=== PATIENT | male | born 1955 | race African-American/Black ===

== ENCOUNTER 2016-09-30 12:38 | Emergency (ER) | payer OTHER ==
[2016-09-30 13:58] LABS: BASOPHIL % 0.9 % (0-2); PLATELET COUNT 265 x10^3mcL (130-400); RED CELL DISTRIBUTION WIDTH 12.6 % (11.5-14.5)
[2016-09-30 14:03] LABS: UA SPECIFIC GRAVITY >=1.030 (1.005-1.035); microscopic required? YES; urine erythrocyte NEGATIVE (NEGATIVE)
[2016-09-30 14:12] LABS: AMPHETAMINE QUAL UR NONE DETECTED (NEG <=1000)
[2016-09-30 14:13] LABS: CALCIUM 9.6 mg/dL (8.5-10.1); CARBON DIOXIDE 26.4 mmol/L (21-32); CHLORIDE SERUM 101 mmol/L (98-107); CREATININE SERUM 0.9 mg/dL (0.7-1.3); GFR1 > 60 mL/min; GLUCOSE SERUM 96 mg/dL (74-106); SODIUM SERUM 137 mmol/L (136-145)
[2016-09-30 14:25] LABS: ALBUMIN 3.4 g/dL (3.4-5.0); ALKALINE PHOSPHATASE 160 U/L (46-116); ALT/SGPT 16 U/L (16-63); AST/SGOT 13 U/L (15-37); BILIRUBIN TOTAL 1.1 mg/dL (0.20-1.00); HDL CHOLESTEROL 47 mg/dL (40-60); MAGNESIUM 2.1 mg/dL (1.8-2.4); PHOSPHOROUS 3.4 mg/dL (2.5-4.9)
[2016-09-30 14:26] LABS: CHOLESTEROL 201 mg/dL (<200); T4(THYROXINE) 17.9 ug/dL (4.7-13.3); TOTAL PROTEIN, SERUM 8.6 g/dL (6.4-8.2)
[2016-09-30 18:15] VITALS: BP 121/75
== END 2016-09-30 18:15 | disposition short-term general hospital (02) ==
LOC: ED 12:38
PROVIDERS: Emergency Medicine
DX: R53.1 Weakness (principal); R06.00 Dyspnea, unspecified; E86.0 Dehydration; T78.3XXA Angioneurotic edema, initial encounter; I10 Essential (primary) hypertension; E05.90 Thyrotoxicosis, unspecified without thyrotoxic crisis or storm
CPT/HCPCS: 36600; J1200; J2930; J7030; J7613